=== PATIENT | female | born 1945 | race Caucasian/White ===

== ENCOUNTER 2017-01-24 13:19 | Inpatient (IN) ==
[2017-01-24] MEDS ORDERED: Furosemide 20 MG TABLET PO PRN (13:46)
[2017-01-24] MEDS ORDERED: Trolamine Salicylate/Aloe Vera 35.4 GM TUBE TP PRN (13:46)
[2017-01-24] MEDS ORDERED: Acetaminophen 325 MG TABLET PO PRN (13:46)
[2017-01-24] MEDS ORDERED: Lisinopril 20 MG TABLET PO PRN (13:46)
[2017-01-24] MEDS ORDERED: *HR* HYDROcodone/Acet 10/325 mg TABLET PO PRN (13:46)
[2017-01-24] MEDS ORDERED: Estrogens, Conjugated CREAM 30 GM TUBE VG SCH (14:00)
[2017-01-24] MEDS: *HR* HYDROcodone/Acet 10/325 mg TABLET PO PRN (14:58)
--- NOTE | 2017-01-24 16:15 | Internal Med History&Physical ---
Date of Encounter: 01/24/17 Time of Encounter: 16:13 Assessment and Plan (1) Acute metabolic encephalopathy Current visit: No Status: Acute This seems to generally resolved. She is recognized workers from previous meetings and is certainly reasonable and her responses we will have our staff psychologist see her (2) Acute worsening of stage 3 chronic kidney disease Current visit: No Status: Acute Will follow her kidney function. (3) Cognitive and behavioral changes Current visit: No Status: Acute Seems stable at the moment. But we will do the workup as previously stated Internal Medicine - H&P: HPI Chief complaint: Patient had UTI history of falling questionable memory loss and possible ea Admitted From: Hospital to Hospital Transfer Plans for Post Hospital Care: Home History of present illness: Ms. Linda is a 72 year old female who arrived to [facility] rehabilitation to increase strength and endurance. There were concerned about her falling and need to observe her gait due to gait training Past Med Surg Social Fam HX - Past Medical History Medical history: hyperlipidemia, hypertension, renal disease, other Psychiatric history: depression - Past Surgical History Surgical History: hysterectomy, knee replacement, orthopedic, other, other - Social History Smoking Status: Never smoker Smokeless Tobacco Status: No Alcohol use: none Drug use: none - Family History Mother Living Status: Hx Family Cardiac Disorders: Yes (HTN) Hx Family Neurologic Disorders: Yes (Parkinsons) Internal Medicine - H&P: Meds Baclofen [Lioresal] 10 mg PO 0900 11/21/15 [History] Citalopram [CeleXA] 20 mg PO DAILY 11/21/15 [History] Docusate [Colace] 200 mg PO BID 11/21/15 [History] Furosemide [Lasix] 20 mg PO DAILY PRN 11/21/15 [History] Gabapentin [Neurontin] 400 mg PO HS 11/21/15 [History] Lisinopril [Zestril] 20 mg PO DAILY PRN 11/21/15 [History] Multivitamin [Multi-Day Vitamins] 1 tab PO DAILY 11/21/15 [History] Omeprazole [PriLOSEC] 20 mg PO DAILY 11/21/15 [History] Potassium Chloride 20 meq PO DAILY 11/21/15 [History] Triamterene/HCTZ 75/50mg [Maxzide] 1 tab PO DAILY 11/21/15 [History] Calcium Carbonate [Calcium] 600 mg PO DAILY 12/31/16 [History] Oxybutynin [Ditropan] 5 mg PO BID 12/31/16 [History] GuaiFENesin/Dextromethorphan [Robitussin/Dm] 10 ml PO Q6HR PRN 10 Days 01/02/17 [Rx] Cranberry Fruit Extract [Cranberry] 500 mg PO DAILY 01/21/17 [History] Estrogens, Conjugated [Premarin Cream] 1 appl VG AD 01/21/17 [History] Tramadol HCl [Tramadol HCl ER] 200 mg PO DAILY PRN 01/21/17 [History] Acetaminophen [Tylenol] 650 mg PO Q6HR PRN #0 tablet 01/24/17 [Rx] Baclofen 20 mg PO HS 01/24/17 [History] Gabapentin [Neurontin] 100 mg PO 0900 01/24/17 [History] HYDROcodone/Acet 10/325 mg [[place] 10-325 mg] 1 each PO TID PRN #0 tablet [Rx] HYDROcodone/Acet 10/325 mg [[place] 10-325 mg] 2 each PO TID PRN #0 tablet [Rx] Trolamine Salicylate/Aloe Vera [Aspercreme 10%] 1 appl TP TID PRN #0 tube [Rx] Allergies Phenothiazines Allergy (Verified 01/21/17 14:14) Shakiness All Systems PM: A 10-system review of systems was performed and is negative for pertinent findings except as documented above in the HPI. - Constitutional Vitals: Temp Pulse Resp BP Pulse Ox 97.6 F 71 17 165/70 95 01/24/17 13:27 01/24/17 14:28 01/24/17 14:28 01/24/17 14:28 01/24/17 14:28 - Head Head exam: Present: atraumatic, normal inspection, normocephalic - Neck Neck exam general surgery: Present: supple, trachea midline. Absent: lymphadenopathy - Respiratory Respiratory exam: Present: CTAB. Absent: accessory muscle use, rales, rhonchi, wheezes - Cardiovascular Cardiovascular exam: Present: RRR, +S1, +S2. Absent: diastolic murmur, gallop, rubs, systolic murmur - GI/Abdominal GI/Abdominal exam: Present: normal bowel sounds, soft, no peritoneal signs. Absent: distended, tenderness Internal Med - H&P Results - Labs Labs: Lab pending - VTE Documentation of Mechanical Device: Graduated compression elastic hosiery
[2017-01-24] MEDS: Baclofen 10 MG TABLET PO SCH (21:21)
[2017-01-24] MEDS: Gabapentin 400 MG CAPSULE PO SCH (21:21)
[2017-01-25] MEDS: *HR* HYDROcodone/Acet 10/325 mg TABLET PO PRN ×2 (05:54→23:40)
[2017-01-25 08:13] LABS: BUN/Creatinine Ratio 21 (6-26); Blood Urea Nitrogen 23 mg/dL (7-20); Calcium 9.4 mg/dL (8.6-10.8); Carbon Dioxide 25 mEq/L (19-29); Chloride 102 mEq/L (98-109); Glucose 116 mg/dL (70-99); Osmolality,Calculated 295 (280-300); eGFR For African Americans > 60 (> 60); eGFR For Non-African Americans 50 (> 60)
[2017-01-25 08:21] LABS: Prothrombin Time 11.1 Seconds (9.4-12.1)
[2017-01-25 08:23] LABS: Basophils # 0.1 K/mcL (0.0-0.2); Eosinophils # 0.4 K/mcL (0.0-0.6); Hematocrit 40.7 % (35.3-44.9); Hemoglobin 13.2 g/dL (11.5-15.4); Immature Granulocytes % 1.6 % (0-4); Lymphocytes # 1.7 K/mcL (0.6-4.6); Lymphocytes % 22.4 %; Mean Corpuscular HGB Conc 32.4 g/dL (31.6-35.5); Mean Corpuscular Hemoglobin 29.6 pg (28.0-33.3); Mean Corpuscular Volume 91.3 fL (83.0-100.0); Mean Platelet Volume 11.7 fL (9.4-12.4); Monocytes # 0.6 K/mcL (0.0-1.3); Monocytes % 8.3 %; Neutrophils # 4.5 K/mcL (1.6-8.9); Platelet Count 163 K/mcL (140-400); Red Blood Count 4.46 M/mcL (3.82-4.97); Red Cell Distribution Width 13.5 % (11.5-14.5); Segmented Neutrophils % 60.7 %
[2017-01-25 08:35] LABS: Sodium 140 mEq/L (136-145)
[2017-01-25] MEDS: Baclofen 10 MG TABLET PO SCH ×2 (09:07→23:42)
[2017-01-25] MEDS: Multivit/Ca/Min/Fe/FA 1 TAB TABLET PO SCH (09:07)
[2017-01-25] MEDS: Gabapentin 100 MG CAPSULE PO SCH (09:07)
[2017-01-25] MEDS: (Cranberry Fruit Extract [Cranberry] 500 MG) PO SCH (09:08)
--- NOTE | 2017-01-25 13:24 | Internal Med Progress Note ---
Date of Encounter: 01/25/17 Time of Encounter: 13:23 - Assessment and plan (1) Acute metabolic encephalopathy Current Visit: No Status: Resolved (2) Acute worsening of stage 3 chronic kidney disease Current Visit: Yes Status: Acute Assessment and plan: Following renal function (3) Cognitive and behavioral changes Current Visit: No Status: Acute Assessment and plan: This seems improved. - Time Spent With Patient less than 15 minutes - Subjective Interval history: Patient is cooperating with the therapist eating and no other acute symptoms. We did do a chest x-ray and it did not show any acute change - Constitutional Vitals: Temp Pulse Resp BP Pulse Ox 98.4 F 69 18 153/82 95 01/25/17 07:26 01/25/17 08:15 01/25/17 07:26 01/25/17 08:15 01/25/17 07:26 - Head Head exam: Present: atraumatic, normal inspection, normocephalic - Neck Neck exam general surgery: Present: supple, trachea midline. Absent: lymphadenopathy - Respiratory Respiratory exam: Present: CTAB. Absent: accessory muscle use, rales, rhonchi, wheezes - Cardiovascular Cardiovascular exam: Present: RRR, +S1, +S2. Absent: diastolic murmur, gallop, rubs, systolic murmur - GI/Abdominal GI/Abdominal exam: Present: normal bowel sounds, soft, no peritoneal signs. Absent: distended, tenderness Internal Medicine: Result - Labs CBC & Chem 7: 01/25/17 07:57 01/25/17 07:50 Labs: Short CBC 01/25/17 Range/Units 07:57 WBC 7.4 (4.3-11.1) K/mcL Hgb 13.2 D (11.5-15.4) g/dL Hct 40.7 (35.3-44.9) % Plt Count 163 (140-400) K/mcL Neutrophils # 4.5 (1.6-8.9) K/mcL BMP 01/25/17 07:50 Sodium 140 Potassium 5.0 H Chloride 102 Carbon Dioxide 25 BUN 23 H Creatinine 1.08 Glucose 116 H Calcium 9.4 Laboratory look stable - ABG Interpretation ABG results: PT/INR, D-dimer PT 11.1 Seconds (9.4-12.1) 01/25/17 08:00 - Impressions Impressions Chest X-Ray 01/25/17 08:12 IMPRESSION: No acute cardiopulmonary disease D/ / Jonathan Davis MD / Jonathan Davis MD Interpreting Provider: Jonathan Davis MD - VTE Documentation of Mechanical Device: Graduated compression elastic hosiery Consult Discharge Plan - Plan Referrals: Chio Vázquez, CUSTOM HOME INSTALLER [Primary Care Provider] -
[2017-01-25] MEDS: Estrogens, Conjugated CREAM 30 GM TUBE VG SCH (23:39)
[2017-01-25] MEDS: Gabapentin 400 MG CAPSULE PO SCH (23:41)
[2017-01-26] MEDS: *HR* Enoxaparin 40 MG/0.4 ML SYRINGE SQ SCH (05:09)
[2017-01-26] MEDS: *HR* HYDROcodone/Acet 10/325 mg TABLET PO PRN ×3 (05:09→22:16)
[2017-01-26] MEDS: Multivit/Ca/Min/Fe/FA 1 TAB TABLET PO SCH (09:06)
[2017-01-26] MEDS: (Cranberry Fruit Extract [Cranberry] 500 MG) PO SCH (09:06)
[2017-01-26] MEDS: Gabapentin 100 MG CAPSULE PO SCH (09:06)
[2017-01-26] MEDS: Baclofen 10 MG TABLET PO SCH ×2 (09:06→22:18)
[2017-01-26] MEDS: Gabapentin 400 MG CAPSULE PO SCH (22:16)
[2017-01-26] MEDS: Estrogens, Conjugated CREAM 30 GM TUBE VG SCH (22:21)
[2017-01-27] MEDS: *HR* Enoxaparin 40 MG/0.4 ML SYRINGE SQ SCH (06:15)
[2017-01-27] MEDS: *HR* HYDROcodone/Acet 10/325 mg TABLET PO PRN ×2 (06:16→20:22)
[2017-01-27] MEDS: Baclofen 10 MG TABLET PO SCH ×2 (08:04→20:19)
[2017-01-27] MEDS: Multivit/Ca/Min/Fe/FA 1 TAB TABLET PO SCH (08:05)
[2017-01-27] MEDS: Gabapentin 100 MG CAPSULE PO SCH (08:06)
[2017-01-27] MEDS ORDERED: MOM Conc 10 ML UD.LIQ PO PRN (10:26)
--- NOTE | 2017-01-27 10:36 | Internal Med Progress Note ---
Date of Encounter: 01/27/17 Time of Encounter: 10:34 - Assessment and plan (1) Physical deconditioning Current Visit: Yes Status: Acute Assessment and plan: PT OT working on improving gait, balance and endurance in improving ADL. - Time Spent With Patient less than 15 minutes - Subjective Interval history: Still complains of constipation. Requesting milk of Magnesia. No shortness of breath. No chest pain. No nausea. - Constitutional Vitals: Temp Pulse Resp BP Pulse Ox 98.1 F 62 18 104/65 92 L 01/27/17 07:28 01/27/17 07:28 01/27/17 07:28 01/27/17 07:28 01/27/17 07:28 General appearance: Present: A&O X 3, pleasant, no acute distress - Respiratory Respiratory exam: Present: CTAB. Absent: accessory muscle use, rales, rhonchi, wheezes - Cardiovascular Cardiovascular exam: Present: RRR, +S1, +S2. Absent: diastolic murmur, gallop, rubs, systolic murmur - GI/Abdominal GI/Abdominal exam: Present: normal bowel sounds, soft, no peritoneal signs. Absent: distended, tenderness - Extremities Exam Extremities exam: Present: pedal edema, warm, radial pulses palpable and symetrical. Absent: calf tenderness, cyanotic - Neurological Exam Neurological exam: Present: CN II-XII intact, oriented X3, no focal deficits. Absent: pronater drift, facial droop, speech deficit Internal Medicine: Result - Labs CBC & Chem 7: 01/25/17 07:57 01/25/17 07:50 - ABG Interpretation ABG results: PT/INR, D-dimer PT 11.1 Seconds (9.4-12.1) 01/25/17 08:00 - VTE Documentation of Mechanical Device: Graduated compression elastic hosiery Consult Discharge Plan - Plan Referrals: Chio Vázquez PLAN MANAGER [Primary Care Provider] -
[2017-01-27] MEDS: (Cranberry Fruit Extract [Cranberry] 500 MG) PO SCH (16:53)
[2017-01-27] MEDS: Gabapentin 400 MG CAPSULE PO SCH (20:20)
[2017-01-27] MEDS: Estrogens, Conjugated CREAM 30 GM TUBE VG SCH (20:23)
[2017-01-28] MEDS: *HR* Enoxaparin 40 MG/0.4 ML SYRINGE SQ SCH (05:23)
[2017-01-28] MEDS: *HR* HYDROcodone/Acet 10/325 mg TABLET PO PRN ×3 (05:23→21:27)
[2017-01-28 06:41] LABS: Basophils # 0.1 K/mcL (0.0-0.2); Basophils % 0.6 %; Eosinophils # 0.4 K/mcL (0.0-0.6); Eosinophils % 3.1 %; Hematocrit 37.7 % (35.3-44.9); Immature Granulocytes % 5.2 % (0-4); Lymphocytes # 1.9 K/mcL (0.6-4.6); Lymphocytes % 14.6 %; Mean Corpuscular HGB Conc 31.8 g/dL (31.6-35.5); Mean Corpuscular Hemoglobin 29.4 pg (28.0-33.3); Mean Corpuscular Volume 92.4 fL (83.0-100.0); Mean Platelet Volume 11.2 fL (9.4-12.4); Monocytes % 7.9 %; Neutrophils # 8.9 K/mcL (1.6-8.9); Platelet Count 127 K/mcL (140-400); Red Blood Count 4.08 M/mcL (3.82-4.97); Red Cell Distribution Width 14.1 % (11.5-14.5); Segmented Neutrophils % 68.6 %
[2017-01-28 06:43] LABS: Calcium 8.5 mg/dL (8.6-10.8); Potassium 4.4 mEq/L (3.5-4.5)
[2017-01-28 06:50] LABS: Platelet Estimate Decreased (Normal)
[2017-01-28] MEDS: Gabapentin 100 MG CAPSULE PO SCH (09:35)
[2017-01-28] MEDS: Multivit/Ca/Min/Fe/FA 1 TAB TABLET PO SCH (09:36)
[2017-01-28] MEDS: Baclofen 10 MG TABLET PO SCH ×2 (09:36→21:22)
[2017-01-28] MEDS: (Cranberry Fruit Extract [Cranberry] 500 MG) PO SCH (09:37)
--- NOTE | 2017-01-28 14:52 | Internal Med Progress Note ---
Date of Encounter: 01/28/17 Time of Encounter: 14:50 - Assessment and plan (1) Acute metabolic encephalopathy Current Visit: No Status: Resolved Assessment and plan: This probably resolved if it ever occur (2) Acute worsening of stage 3 chronic kidney disease Current Visit: Yes Status: Acute Assessment and plan: Follow renal function apparently gets worse it has improved (3) Cognitive and behavioral changes Current Visit: No Status: Acute Assessment and plan: This seems to be stabilized this point - Time Spent With Patient less than 15 minutes - Subjective Interval history: Patient is cooperating with the therapist eating and no other acute symptoms. We did do a chest x-ray and it did not show any acute change - Constitutional Vitals: Temp Pulse Resp BP Pulse Ox 98.4 F 56 16 92/56 94 L 01/28/17 07:00 01/28/17 07:00 01/28/17 07:00 01/28/17 07:00 01/28/17 07:00 General appearance: Present: A&O X 3, pleasant, no acute distress - Head Head exam: Present: atraumatic, normal inspection, normocephalic - Neck Neck exam general surgery: Present: supple, trachea midline. Absent: lymphadenopathy - Respiratory Respiratory exam: Present: CTAB. Absent: accessory muscle use, rales, rhonchi, wheezes - Cardiovascular Cardiovascular exam: Present: RRR, +S1, +S2. Absent: diastolic murmur, gallop, rubs, systolic murmur Internal Medicine: Result - Labs CBC & Chem 7: 01/28/17 06:20 01/28/17 06:20 Labs: Short CBC 01/28/17 Range/Units 06:20 WBC 13.0 H D (4.3-11.1) K/mcL Hgb 12.0 (11.5-15.4) g/dL Hct 37.7 (35.3-44.9) % Plt Count 127 L (140-400) K/mcL Neutrophils # 8.9 (1.6-8.9) K/mcL BMP 01/28/17 06:20 Sodium 138 Potassium 4.4 Chloride 101 Carbon Dioxide 28 BUN 35 H D Creatinine 1.14 H Glucose 117 H Calcium 8.5 L In watch BUN and otherwise stable - ABG Interpretation ABG results: PT/INR, D-dimer PT 11.1 Seconds (9.4-12.1) 01/25/17 08:00 - VTE Documentation of Mechanical Device: Graduated compression elastic hosiery Consult Discharge Plan - Plan Referrals: Chio Vázquez, KNITTER HAND [Primary Care Provider] -
[2017-01-28] MEDS: Gabapentin 400 MG CAPSULE PO SCH (21:22)
[2017-01-28] MEDS: Estrogens, Conjugated CREAM 30 GM TUBE VG SCH (21:23)
[2017-01-29] MEDS: *HR* HYDROcodone/Acet 10/325 mg TABLET PO PRN ×2 (03:00→20:20)
[2017-01-29] MEDS: *HR* Enoxaparin 40 MG/0.4 ML SYRINGE SQ SCH (06:36)
[2017-01-29] MEDS: Baclofen 10 MG TABLET PO SCH ×2 (07:16→20:19)
[2017-01-29] MEDS: (Cranberry Fruit Extract [Cranberry] 500 MG) PO SCH (07:18)
[2017-01-29] MEDS: Gabapentin 100 MG CAPSULE PO SCH (07:18)
[2017-01-29] MEDS: Multivit/Ca/Min/Fe/FA 1 TAB TABLET PO SCH (07:18)
--- NOTE | 2017-01-29 13:14 | Internal Med Progress Note ---
Date of Encounter: 01/29/17 Time of Encounter: 13:11 - Assessment and plan (1) Acute worsening of stage 3 chronic kidney disease Current Visit: Yes Status: Acute Assessment and plan: Overall much improved (2) Cognitive and behavioral changes Current Visit: No Status: Acute Assessment and plan: This seems to have improved also - Time Spent With Patient less than 15 minutes - Subjective Interval history: Patient is cooperating with the therapist eating and no other acute symptoms. We did do a chest x-ray and it did not show any acute change. Patient left this morning for follow-up with primary care physician or nurse practitioner. She has not returned at this time at 1 PM - Constitutional Vitals: Temp Pulse Resp BP Pulse Ox 97.8 F 55 18 147/76 93 L 01/29/17 07:00 01/29/17 07:00 01/29/17 07:00 01/29/17 07:00 01/29/17 07:00 General appearance: Present: A&O X 3, pleasant, no acute distress - Head Head exam: Present: atraumatic, normal inspection, normocephalic - Neck Neck exam general surgery: Present: supple, trachea midline. Absent: lymphadenopathy - Respiratory Respiratory exam: Present: CTAB. Absent: accessory muscle use, rales, rhonchi, wheezes - Cardiovascular Cardiovascular exam: Present: RRR, +S1, +S2. Absent: diastolic murmur, gallop, rubs, systolic murmur Internal Medicine: Result - Labs CBC & Chem 7: 01/28/17 06:20 01/28/17 06:20 Labs: We will watch to BUN etc. - ABG Interpretation ABG results: PT/INR, D-dimer PT 11.1 Seconds (9.4-12.1) 01/25/17 08:00 - VTE Documentation of Mechanical Device: Graduated compression elastic hosiery Consult Discharge Plan - Plan Referrals: Chio Vázquez, NEWS ASSISTANT [Primary Care Provider] -
--- NOTE | 2017-01-29 13:50 | Discharge Summary ---
Date of Encounter: 01/30/17 Time of Encounter: 15:00 - Discharge Diagnosis (1) Acute worsening of stage 3 chronic kidney disease Priority: Primary Status: Acute Comments: This much improved (2) Cognitive and behavioral changes Priority: Primary Status: Acute Comments: Again this aspect is much improved. - Discharge Medications Home Medications: Baclofen [Lioresal] 10 mg PO 0900 11/21/15 [History] Citalopram [CeleXA] 20 mg PO DAILY 11/21/15 [History] Docusate [Colace] 200 mg PO BID 11/21/15 [History] Furosemide [Lasix] 20 mg PO DAILY PRN 11/21/15 [History] Gabapentin [Neurontin] 400 mg PO HS 11/21/15 [History] Lisinopril [Zestril] 20 mg PO DAILY PRN 11/21/15 [History] Multivitamin [Multi-Day Vitamins] 1 tab PO DAILY 11/21/15 [History] Omeprazole [PriLOSEC] 20 mg PO DAILY 11/21/15 [History] Potassium Chloride 20 meq PO DAILY 11/21/15 [History] Triamterene/HCTZ 75/50mg [Maxzide] 1 tab PO DAILY 11/21/15 [History] Calcium Carbonate [Calcium] 600 mg PO DAILY 12/31/16 [History] Oxybutynin [Ditropan] 5 mg PO BID 12/31/16 [History] GuaiFENesin/Dextromethorphan [Robitussin/Dm] 10 ml PO Q6HR PRN 10 Days 01/02/17 [Rx] Cranberry Fruit Extract [Cranberry] 500 mg PO DAILY 01/21/17 [History] Estrogens, Conjugated [Premarin Cream] 1 appl VG AD 01/21/17 [History] Tramadol HCl [Tramadol HCl ER] 200 mg PO DAILY PRN 01/21/17 [History] Acetaminophen [Tylenol] 650 mg PO Q6HR PRN #0 tablet 01/24/17 [Rx] Baclofen 20 mg PO HS 01/24/17 [History] Gabapentin [Neurontin] 100 mg PO 0900 01/24/17 [History] HYDROcodone/Acet 10/325 mg [[place] 10-325 mg] 1 each PO TID PRN #0 tablet [Rx] HYDROcodone/Acet 10/325 mg [[place] 10-325 mg] 2 each PO TID PRN #0 tablet [Rx] Trolamine Salicylate/Aloe Vera [Aspercreme 10%] 1 appl TP TID PRN #0 tube [Rx] Allergies/Adverse Reactions: Allergies Phenothiazines Allergy (Verified 01/21/17 14:14) Shakiness Date of admission: 01/24/17 13:31 Primary care physician: Chio Vázquez CNP Consults: 01/24/17 13:38 Consult to Occupational Therapy [CONS] Routine Comment: Evaluate, develop and implement POC Consult to Physical Medicine/Rehab [CONS] Routine Reason for Consult: s/p uti, fall, ams Call Completed: Yes Consult to Physical Therapy [CONS] Routine Comment: Evaluate, develop and implement POC Consult to Recreational Therapy [CONS] Routine Comment: Evaluate, develop and implement POC Consult to Milking Machine Mechanic [CONS] Routine Reason for SW Consult: d/c planning Consult to Speech Therapy [CONS] Routine Comment: Evaluate, develop and implement POC Reason for Consult: soft chopped diet on admission Call Completed: Yes Discharging clinician: Ran Pineda Anticipated date of discharge: 01/30/17 - Patient Status Disposition: Home Health Service Condition: Good Functional capacity at discharge: uses cane/walker Overall status at discharge: patient is progressing back to baseline - Discharge Instructions Follow Up With: Chio Vázquez CNP [Primary Care Provider] - - Diet and Activity Activity: ambulate only with your walker Diet: advance to your usual diet Interval History: Patient was transferred here after an infection or hospitalization. She is improved cognitively and physically. Hospital course: Ms. Linda is a 72 year old female - Time Spent with Patient Total time spent providing and/or coordinating discharge services: Less than 30 minutes - Constitutional Vitals: Temp Pulse Resp BP Pulse Ox 97.8 F 55 18 147/76 93 L 01/29/17 07:00 01/29/17 07:00 01/29/17 07:00 01/29/17 07:00 01/29/17 07:00 General appearance: Present: A&O X 3, pleasant, no acute distress - Head Head exam: Present: atraumatic, normal inspection, normocephalic - Neck Neck exam general surgery: Present: supple, trachea midline. Absent: lymphadenopathy - Respiratory Respiratory exam: Present: CTAB. Absent: accessory muscle use, rales, rhonchi, wheezes - Cardiovascular Cardiovascular exam: Present: RRR, +S1, +S2. Absent: diastolic murmur, gallop, rubs, systolic murmur - VTE Documentation of Mechanical Device: Graduated compression elastic hosiery
--- NOTE | 2017-01-29 13:53 | Physician Discharge Referral ---
Home Health/Hosp Referral Info Transfer to: Home Health Provider in Charge Post Discharge: PCP - Diagnosis (1) Acute worsening of stage 3 chronic kidney disease Priority: Primary Status: Acute (2) Cognitive and behavioral changes Priority: Primary Status: Acute - Respiratory Orders Smoking Cessation: Smoking cessation has been advised. For more information, call the [place] Tobacco Quit Line at 9-179-WBRD-NOW. - Diet/Nutrition Diet/Nutrition Orders: No Concentrated Sweets - Activity Activity Orders: Walker - Services Needed Following services are medically necessary services: Nursing, Physical Therapy - Transfer Medications Home Medications: Baclofen [Lioresal] 10 mg PO 0900 11/21/15 [History] Citalopram [CeleXA] 20 mg PO DAILY 11/21/15 [History] Docusate [Colace] 200 mg PO BID 11/21/15 [History] Furosemide [Lasix] 20 mg PO DAILY PRN 11/21/15 [History] Gabapentin [Neurontin] 400 mg PO HS 11/21/15 [History] Lisinopril [Zestril] 20 mg PO DAILY PRN 11/21/15 [History] Multivitamin [Multi-Day Vitamins] 1 tab PO DAILY 11/21/15 [History] Omeprazole [PriLOSEC] 20 mg PO DAILY 11/21/15 [History] Potassium Chloride 20 meq PO DAILY 11/21/15 [History] Triamterene/HCTZ 75/50mg [Maxzide] 1 tab PO DAILY 11/21/15 [History] Calcium Carbonate [Calcium] 600 mg PO DAILY 12/31/16 [History] Oxybutynin [Ditropan] 5 mg PO BID 12/31/16 [History] GuaiFENesin/Dextromethorphan [Robitussin/Dm] 10 ml PO Q6HR PRN 10 Days 01/02/17 [Rx] Cranberry Fruit Extract [Cranberry] 500 mg PO DAILY 01/21/17 [History] Estrogens, Conjugated [Premarin Cream] 1 appl VG AD 01/21/17 [History] Tramadol HCl [Tramadol HCl ER] 200 mg PO DAILY PRN 01/21/17 [History] Acetaminophen [Tylenol] 650 mg PO Q6HR PRN #0 tablet 01/24/17 [Rx] Baclofen 20 mg PO HS 01/24/17 [History] Gabapentin [Neurontin] 100 mg PO 0900 01/24/17 [History] HYDROcodone/Acet 10/325 mg [[place] 10-325 mg] 1 each PO TID PRN #0 tablet [Rx] HYDROcodone/Acet 10/325 mg [[place] 10-325 mg] 2 each PO TID PRN #0 tablet [Rx] Trolamine Salicylate/Aloe Vera [Aspercreme 10%] 1 appl TP TID PRN #0 tube [Rx] Allergies/Adverse Reactions: Allergies Phenothiazines Allergy (Verified 01/21/17 14:14) Tyes Certification: Further, I certify that my clinical findings support that this patient is homebound (i.e. absences from home require considerable and taxing effort and are for medical reasons or tenriism services or infrequently or short duration when for other reasons) because: Homebound Reason: Patient requires assistance of a person or device to safely leave home Attestation: My signature below is to certify that this patient is under my care and that I, or nurse practitioner, or a physician's laundry assistant working with me, has a face-to -face encounter with this patient.
[2017-01-29] MEDS: Estrogens, Conjugated CREAM 30 GM TUBE VG SCH (20:20)
[2017-01-29] MEDS: Gabapentin 400 MG CAPSULE PO SCH (20:20)
[2017-01-30] MEDS: *HR* Enoxaparin 40 MG/0.4 ML SYRINGE SQ SCH (03:33)
[2017-01-30 05:39] LABS: Calcium 8.6 mg/dL (8.6-10.8); Potassium 3.9 mEq/L (3.5-4.5)
[2017-01-30 07:14] VITALS: BP 108/55
[2017-01-30] MEDS: Baclofen 10 MG TABLET PO SCH (09:19)
[2017-01-30] MEDS: Multivit/Ca/Min/Fe/FA 1 TAB TABLET PO SCH (09:20)
[2017-01-30] MEDS: Gabapentin 100 MG CAPSULE PO SCH (09:20)
[2017-01-30] MEDS: (Cranberry Fruit Extract [Cranberry] 500 MG) PO SCH (09:20)
== END 2017-01-30 12:00 | disposition home health service (06) | DRG 946 ==
LOC: INPGRE 13:31
PROVIDERS: ADMIT Internal Medicine; ATTEND Internal Medicine